=== PATIENT | female | born 1955 | race Caucasian/White ===

== ENCOUNTER 2018-10-11 17:20 | Emergency (ER) | payer OTHER ==
[~2018-10-11] VITALS: Ht 170.2 cm; Wt 61.7 kg
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
[2018-10-11] MEDS ORDERED: HYDR-79 PO (18:23)
[2018-10-11] MEDS ORDERED: BUPIVACAINE MPF 0.5% 10 ML VIAL. IJ ONE (18:30)
[2018-10-11] MEDS ORDERED: oxyCODONE/APAP 5/325 1 TAB TABLET PO ONE (18:30)
[2018-10-11] MEDS ORDERED: BUPIVACAINE MPF 0.5% 30 ML VIAL. IJ ONE (18:30)
[2018-10-11] MEDS ORDERED: LIDOCAINE 2% 20 ML VIAL. IJ ONE (18:30)
--- NOTE | 2018-10-11 18:48 | EKG ---
[address] [address] Test Date: 2018-10-11 Test Time: 18:46:10 Pat Name: COURT KINGSTON Department: Room: Gender: F [employer] Making Laborer: : 1955 Requested By: PAZ SINGH Order Number: [id number] Reading MD: Noam Michael MD Measurements Intervals [employer] Rate: 75 P: 0 ME: 122 QRS: 44 QRSD: 84 T: 41 QT: 404 QTc: 454 Interpretive Statements SINUS RHYTHM Electronically Signed On 10-13-2018 8:39:05 [employer] by Noam Michael MD
[2018-10-11 19:42] LABS: BASO # 0.1 x10^3/uL (0.0-0.2); BASO % 1 % (0-3); EOS # 0.1 x10^3/uL (0.0-0.7); EOS % 1 % (0-3); HEMATOCRIT 39.4 % (36.0-47.0); HEMOGLOBIN 12.8 g/dL (12.0-15.5); LYMPH # 0.7 x10^3/uL (1.0-4.8); LYMPH % 13 % (24-48); MEAN CORPUSCULAR HEMOGLOBIN 30 pg (25-35); MEAN CORPUSCULAR HGB CONC 32 g/dL (31-37); MEAN CORPUSCULAR VOLUME 92 fL (79-100); MONO # 0.4 x10^3/uL (0.0-1.1); MONO % 7 % (0-9); NEUT # 4.3 x10^3uL (1.8-7.7); NEUT % 78 % (31-73); PLATELET COUNT 224 x10^3/uL (140-400); RED BLOOD COUNT 4.28 x10^6/uL (3.50-5.40); RED CELL DISTRIBUTION WIDTH 14.2 % (11.5-14.5); WHITE BLOOD COUNT 5.5 x10^3/uL (4.0-11.0)
[2018-10-11 19:49] LABS: ALBUMIN 4.1 g/dL (3.4-5.0); CALCIUM 9.1 mg/dL (8.5-10.1); CREATININE 0.9 mg/dL (0.6-1.0); DIRECT BILIRUBIN 0.1 mg/dL (0.0-0.2); GFR 63.7; POTASSIUM 4.3 mmol/L (3.5-5.1); TOTAL BILIRUBIN 0.3 mg/dL (0.2-1.0); TOTAL PROTEIN 7.3 g/dL (6.4-8.2)
[2018-10-11 19:55] VITALS: BP 142/78
--- NOTE | 2018-10-12 04:18 | RAD ---
Two-view right wrist radiographs 10/11/2018 CLINICAL HISTORY: Postreduction radiographs of the right wrist. PA and lateral digital radiographs of the right wrist were obtained. Comparison study is dated earlier the same day at 1926 hours. An External splint is again seen surrounding the right wrist. An acute comminuted fracture of the distal right radial metaphysis is seen. There is an associated fracture of the ulnar styloid. There has been improvement in the alignment of the fracture fragments of the distal right radius. IMPRESSION: Postreduction radiographs of the right wrist as outlined above. Electronically signed by: Marcellus Madrid MD (10/12/2018 4:15 AM) [id number]
--- NOTE | 2018-10-12 08:03 | RAD ---
3 views right left hand 10/11/2018 CLINICAL INDICATION: Fall with right hand pain and swelling. COMPARISON: None. FINDINGS: Left hand: Diffuse bony demineralization. Comminuted and impacted fracture of the distal radius with intra-articular extension. Right hand: Comminuted and impacted intra-articular fracture of the distal radius with extension to the distal radial ulnar articulation. There is dorsal angulation and dorsal displacement of the distal fracture fragments of the radius along with the carpus. Nondisplaced ulnar styloid fracture. Diffuse bony demineralization. IMPRESSION: Left hand: 1. Comminuted and impacted distal radial fracture. Right hand: 1. Comminuted and angulated distal radial fracture with dorsal displacement along with the carpus. 2. A minimally displaced ulnar styloid fracture. Electronically signed by: Tomas Hermosillo MD (10/12/2018 8:00 AM) [facility]
--- NOTE | 2018-10-12 08:05 | RAD ---
2 views right and left forearm 10/11/2018 Clinical indication: Fall with pain and swelling of the right left forearms. COMPARISON: Same day hand radiograph. FINDINGS: Right forearm: Redemonstration of a distal radial fracture with dorsal angulation and dorsal displacement of the distal fracture fragment along with the carpus. Ulnar diaphysis is intact. Soft tissue swelling about the wrist. Left forearm: Redemonstration of distal radial fracture. Ulnar diaphysis is intact. IMPRESSION: Right forearm: Redemonstration of comminuted and displaced distal radial fracture. Left forearm: Redemonstration of distal radial fracture. Electronically signed by: Tomas Hermosillo MD (10/12/2018 8:02 AM) [facility]
--- NOTE | 2018-10-12 08:31 | RAD ---
3 view right wrist 10/11/2018 CLINICAL INDICATION: Wrist fracture post splinting on the right. COMPARISON: 3 view right hand same day FINDINGS: Interval splinting limits bony detail. Comminuted intra-articular fracture of the distal radius with no significant change in dorsal displacement of the fracture fragments along with the carpus. Minimally displaced ulnar styloid fracture. IMPRESSION: No significant change in alignment of comminuted and displaced distal radial fracture. Electronically signed by: Tomas Hermosillo MD (10/12/2018 8:28 AM) [facility]
== END 2018-10-11 20:00 | disposition home or self-care (01) ==
LOC: ER 17:20
DX: S52.122A Displaced fracture of head of left radius, initial encounter for closed fracture (principal); S52.121A Displaced fracture of head of right radius, initial encounter for closed fracture; S52.611A Displaced fracture of right ulna styloid process, initial encounter for closed fracture; W18.30XA Fall on same level, unspecified, initial encounter; Y93.89 Activity, other specified; Y92.89 Other specified places as the place of occurrence of the external cause; Y99.8 Other external cause status
CPT/HCPCS: 25605; 29125; 36415; 73090; 73100; 73110; 73130; 80048; 80076; 85025; 85610; 85730; 93005; 99284